=== PATIENT | female | born 1975 | race Two or more races ===

== ENCOUNTER 2025-04-13 15:51 | Emergency (ER) | payer OTHER ==
[2025-04-13 16:02] VITALS: RESP 18; BMI 27.3
[2025-04-13] MEDS ORDERED: ACETAMINOPHEN INJECTION 100 ML ONE (17:01)
[2025-04-13] MEDS: SODIUM CHLORIDE 0.9% 500 ML INFUS.BAG IV ONE (17:26)
[2025-04-13] MEDS: ACETAMINOPHEN 1000 MG/100 ML BAG IVPB ONE (17:26)
[2025-04-13 17:32] LABS: ABSOLUTE IMMATURE GRANULOCYTES 0.04 x10^3/uL (0.0-0.031); BASOPHILS # 0.06 x10^3/uL (0.01-0.08); EOSINOPHIL % 1.4 % (0.7-5.8); EOSINOPHILS # 0.17 x10^3/uL (0.04-0.36); MCHC 33.3 g/dl (32.2-35.5); MEAN CELL VOLUME 87.6 fl (79.4-94.8); MEAN PLT VOLUME 10.9 fl (9.4-12.3); MONOCYTE # 0.65 x10^3/uL (0.24-0.86); MONOCYTE % 5.2 % (4.7-12.5); RDW 12.5 % (12.3-16.6)
[2025-04-13] MEDS: ACETAMINOPHEN 500 MG TABLET (FP) PO ONE (17:38)
[2025-04-13 17:49] LABS: CO2 24.0 mmol/L (21-32); GLUCOSE,RANDOM 109.0 mg/dL (74-106)
[2025-04-13 17:51] LABS: SGPT/ALT 48.0 U/L (13-61)
[2025-04-13 17:52] LABS: CREATININE 0.6 mg/dL (0.55-1.3); SGOT/AST 25.0 U/L (15-37)
[2025-04-13 17:53] LABS: TOT PROT 8.1 g/dl (6.4-8.2)
[2025-04-13 17:54] LABS: ALK PHOS 130.0 U/L (45-117)
[2025-04-13 18:40] LABS: HCV DIAGNOSTIC IN-HOUSE W/RFLX NON-REACTIVE (NONREACTIVE)
[2025-04-13 18:41] LABS: HIV INTERPRETATION NEGATIVE (NEGATIVE)
[2025-04-13] MEDS: CIPROFLOXACIN 500 MG TABLET (RESTRICTED TO ID) PO ONE (19:47)
[2025-04-13 20:00] VITALS: BP 147/82; PULSE 72; TEMP 98.9
== END 2025-04-13 20:01 | disposition home or self-care (01) ==
LOC: JER 15:51
PROC: 3E033NZ Introduction of Analgesics, Hypnotics, Sedatives into Peripheral Vein, Percutaneous Approach (ICD-10-PCS; principal; 2025-04-13)
DX: K52.9 Noninfective gastroenteritis and colitis, unspecified (principal)
CPT/HCPCS: 36415; 74177-TC; 80053; 83690; 83735; 84703; 85025; 86803; 87389; 99285-25; Q9967